=== PATIENT | male | born 1985 | race Caucasian/White ===

== ENCOUNTER → 2017-02-15 | Outpatient (CLI) | payer OTHER ==
--- NOTE | 2017-02-15 17:23 | XR ---
EXAMINATION TYPE: XR hand complete RT DATE OF EXAM: 02/15/2017 COMPARISON: NONE HISTORY: Pain TECHNIQUE: 3 views FINDINGS: I see no fracture nor dislocation. Metacarpals are intact. Thumb is not well seen due to th e splint. There are no erosions. IMPRESSION: Negative right hand exam.
--- NOTE | 2017-02-15 17:28 | XR ---
EXAMINATION TYPE: XR wrist complete RT DATE OF EXAM: 02/15/2017 COMPARISON: NONE HISTORY: Hand and wrist pain TECHNIQUE: 4 views FINDINGS: I see no fracture nor dislocation. Carpal bones are intact. IMPRESSION: Negative right wrist exam.
== END | disposition home or self-care (01) ==
LOC: RADXRMAIN 16:33
PROVIDERS: ATTEND Emergency Medicine
DX: S63.8X1A Sprain of other part of right wrist and hand, initial encounter (principal)

== ENCOUNTER → 2017-02-17 | Outpatient (CLI) | payer OTHER ==
--- NOTE | 2017-02-17 15:05 | XR ---
EXAMINATION TYPE: XR finger RT DATE OF EXAM: 02/17/2017 COMPARISON: Radiograph of the right wrist dated 02/15/2017 HISTORY: First digit injury TECHNIQUE: 3 view radiographs of the right first digit FINDINGS: There is no evidence of fracture or dislocation. No significant degenerative changes are ap preciated. No soft tissue swelling or radiopaque foreign body is seen. IMPRESSION: No evidence of fracture or dislocation.
== END | disposition home or self-care (01) ==
LOC: RADXRMAIN 14:48
PROVIDERS: ATTEND Emergency Medicine
DX: S63.8X1A Sprain of other part of right wrist and hand, initial encounter (principal)

== ENCOUNTER 2020-08-05 17:12 | Emergency (ER) | payer OTHER ==
[2020-08-05 17:20] VITALS: BP 145/84; PULSE 106; RESP 16; TEMP 98.4
--- NOTE | 2020-08-05 17:35 | ED ---
General Adult HPI - General Chief complaint: Back Pain/Injury Stated complaint: [facility] - Fall, Hip Injury Time Seen by Provider: 08/05/20 17:27 Source: patient, RN notes reviewed Mode of arrival: ambulatory Limitations: no limitations - History of Present Illness Initial comments: Patient is a pleasant 34-year-old male presenting to the emergency department with right hip pain. Patient was running in the room with an immate to assist when he slipped and fell on his right lateral hip. Patient does have moderate discomfort since that time. Discomfort does increase with movement. No other area of injury. No head injury or loss of conscious to severe no history of chronic hip problems. - Related Data Allergies Allergy/AdvReac Type Severity Reaction Status Date / Time No Known Allergies Allergy Verified 08/05/20 17:20 Review of Systems ROS Statement: Those systems with pertinent positive or pertinent negative responses have been documented in the HPI. ROS Other: All systems not noted in ROS Statement are negative. Constitutional: Denies: fever Eyes: Denies: eye pain ENT: Denies: ear pain Respiratory: Denies: cough Cardiovascular: Denies: chest pain Endocrine: Denies: fatigue Gastrointestinal: Denies: abdominal pain Genitourinary: Denies: dysuria Musculoskeletal: Reports: as per HPI. Denies: back pain Skin: Denies: rash Neurological: Denies: weakness Past Medical History Past Medical History: No Reported History History of Any Multi-Drug Resistant Organisms: None Reported Past Surgical History: Appendectomy, Orthopedic Surgery Past Psychological History: No Psychological Hx Reported Smoking Status: Never smoker Past Alcohol Use History: Occasional Past Drug Use History: None Reported General Exam Limitations: no limitations General appearance: alert, in no apparent distress Head exam: Present: atraumatic Eye exam: Present: normal appearance Respiratory exam: Present: normal lung sounds bilaterally Cardiovascular Exam: Present: regular rate, normal rhythm GI/Abdominal exam: Present: soft. Absent: tenderness Extremities exam: Present: tenderness (Right lateral hip) Back exam: Present: normal inspection. Absent: vertebral tenderness Neurological exam: Present: alert. Absent: motor sensory deficit Psychiatric exam: Present: normal affect, normal mood Course Vital Signs 08/05/20 17:16 Temperature 98.4 F Pulse Rate 106 H Respiratory 16 Rate Blood Pressure 145/84 O2 Sat by Pulse 98 Oximetry Medical Decision Making - Medical Decision Making Patient reevaluated and updated. Patient feels he is able to perform his duties at work. Patiently provided started packs for Motrin and Tylenol with codeine - Radiology Data Radiology results: image reviewed (Right hip and pelvis x-ray shows no acute abnormality) Disposition Clinical Impression: Contusion, hip Disposition: HOME SELF-CARE Condition: Stable Instructions (If sedation given, give patient instructions): Hip Contusion (ED) Additional Instructions: Please follow-up with [facility] services in the next couple days for recheck. [id number] Motrin as needed. Return for increased pain, weakness, worsening or change in symptoms or other concerns. Is patient prescribed a controlled substance at d/c from ED?: No Referrals: Nonstaff,Physician [Primary Care Provider] - 1-2 days Time of Disposition: 18:39
--- NOTE | 2020-08-05 18:16 | XR ---
EXAMINATION TYPE: XR Hip RT and AP Pelvis DATE OF EXAM: 08/05/2020 COMPARISON: NONE HISTORY: Hip pain TECHNIQUE: 3 views FINDINGS: The pelvic ring is intact. The proximal right femur and hip joint are intact. There is no s ign of hip dysplasia. Hip joint space is normal. IMPRESSION: Negative right hip exam. No fracture.
[2020-08-05] MEDS ORDERED: ACET/COD 300 MG/30 MG STARTER PACK 6 TAB BTL PO STA (18:37)
[2020-08-05] MEDS ORDERED: IBUPROFEN 600 MG STARTER PACK 4 TAB BTL PO STA (18:38)
== END 2020-08-05 18:54 | disposition home or self-care (01) ==
LOC: EC 17:12
DX: S70.01XA Contusion of right hip, initial encounter (principal); W01.0XXA Fall on same level from slipping, tripping and stumbling without subsequent striking against object, initial encounter
CPT/HCPCS: 73502; 99283